=== PATIENT | male | born 1975 | race Caucasian/White ===

== ENCOUNTER 2020-06-26 21:13 | Emergency (ER) | payer OTHER, SELFPAY ==
[2020-06-26 21:28] VITALS: BP 165/99; PULSE 94; RESP 18; TEMP 36.9; O2SAT 97; BMI 27.8
--- NOTE | 2020-06-26 21:30 | ED_ITS ---
HPI - General Adult General Chief complaint: Wound/Laceration Stated complaint: LEFT HAND LACERATION OF THUMB Time Seen by Provider: 06/26/20 21:19 Source: patient Mode of arrival: Ambulatory Limitations: no limitations History of Present Illness HPI narrative: Patient is a 45-year-old male here for evaluation of a cut to his left thumb. He states that occurred when he was trying to open a package at home that had a zip tie. He states that he stabbed his thumb with the and some of that he was using. He states he is having some numbness on the outside of his thumb. He also states that he needs his tetanus updated. Related Data Allergies Allergy/AdvReac Type Severity Reaction Status Date / Time No Known Drug Allergies Allergy Verified 06/26/20 21:28 Review of Systems Musculoskeletal Comments: Left thumb pain Integumentary/Breasts Comments: Laceration to left thumb Neurologic Comments: Tingling to the left side of the thumb Hematologic/Lymphatic Hematologic/Lymphatic: Denies easy bleeding and Denies easy bruising On Anticoagulants: No Allergic/Immunologic Allergic/Immunologic: Denies urticaria Patient History Medical History Healthy adult Social History Smoking Status: Never smoker Exam Initial Vital Signs Initial Vital Signs: Vital Signs Temperature 98.4 F 06/26/20 21:28 Pulse Rate 94 H 06/26/20 21:28 Respiratory Rate 18 06/26/20 21:28 Blood Pressure 165/99 H 06/26/20 21:28 Pulse Oximetry 97 06/26/20 21:28 Const General: cooperative and comfortable Limitations: mental status not altered HENKS Head: normal to inspection and normocephalic Cardio Pulses: radial pulses present on the left Skin Other: Patient with 3 cm laceration to the volar aspect of the left thumb just proximal to the IP joint. Neuro Other: He reports some tingling to the radial aspect of the left thumb out the tip. Extrem Other: Can flex and extend at the IP joint and the MCP joint. Psych Appearance: well kempt Procedures Laceration Repair Laceration 1: Site: other (Left thumb) Side (If applicable): left Size (cm): 5 Description: linear Depth: simple, single layer Local Anesthetic: lidocaine 1% and with bicarb Amount of anesthesia used (mL): 3 Size (cm): 4-0 Number of sutures: 7 Technique: simple, interrupted Course Orders Ordered: Discontinued Medications Hydrocodone Bitart/Acetaminophen (Hydrocodone/Acet 5/325 Prepack) 1 bottle MISC SEEINSTR ONE Stop: 06/26/20 23:12 Last Admin: 06/26/20 23:14 Dose: 1 bottle Documented by: MARQUES Bacitracin (Bacitracin Oint 0.9 Gm Pckt) 1 applic TOP NOW ONE Stop: 06/26/20 22:58 Last Admin: 06/26/20 23:13 Dose: 1 applic Documented by: MARQUES Diphtheria/Tetanus/Acell Pertussis (Tet,Diph,Pertuss(Acell),Vac/Pf 0.5 Ml S yringe) 0.5 ml IM .ONCE ONE Stop: 06/26/20 21:31 Last Admin: 06/26/20 21:38 Dose: 0.5 ml Documented by: MARQUES Lidocaine/Sodium Bicarbonate (Lido 1%/Sod Bicarb 8.4% (10ml) 10 Ml Syringe) 10 ml INJ NOW ONE Stop: 06/26/20 21:31 Last Admin: 06/26/20 21:38 Dose: 10 ml Documented by: MARQUES Vital Signs Vital signs: Vital Signs - 8 hr 06/26/20 21:28 06/26/20 23:21 Temperature 98.4 F Pulse Rate 94 H 75 Respiratory Rate 18 20 Blood Pressure 165/99 H 156/85 H Pulse Oximetry 97 99 Medical Decision Making MDM Narrative Medical decision making narrative: The wound was clean. His tetanus was updated. He did have some bleeding that needed Gel-Foam in order to control. He did have some tingling along the radial aspect of the left thumb. The laceration was closed as described above. After the thumb was closed there was no more active bleeding. He was given care instructions and return precautions. He expressed understanding agreement. Discharge Plan Departure Patient Disposition: Home Clinical Impression: Laceration Instructions: DI for Laceration Repair Activity Restrictions/Additional Instructions: The stitches do need to be removed in 7-10 days. You can cover with a antibiotic ointment. You can take the splint off to shower and wash your hands. The splint is for soft tissue rest. You can stop wearing it in 3-4 days. Contact your primary provider for a follow-up. Return to the emergency department for any new or worsening symptoms
[2020-06-26] MEDS: LIDO 1%/SOD BICARB 8.4% (10ML) 10 ML SYRINGE INJ (21:38)
[2020-06-26] MEDS: TET,DIPH,PERTUSS(ACELL),VAC/PF 0.5 ML SYRINGE IM (21:38)
--- NOTE | 2020-06-26 21:51 | PC.NURSE ---
Pressure dressing applied 2144
[2020-06-26] MEDS: BACITRACIN OINT 0.9 GM PCKT 1 APPLIC TOP (23:13)
[2020-06-26] MEDS: HYDROCODONE/ACET 5/325 PREPACK 1 BOTTLE MISC (23:14)
[2020-06-26 23:21] VITALS: BP 156/85; PULSE 75; RESP 20; O2SAT 99
== END 2020-06-26 23:22 | disposition home or self-care (01) ==
PROVIDERS: Emergency Provider Emergency Medicine
DX: S61.012A Laceration without foreign body of left thumb without damage to nail, initial encounter (principal); W26.9XXA Contact with unspecified sharp object(s), initial encounter; Z23 Encounter for immunization
CPT/HCPCS: 12002; 29130; 90471; 99283; 99284; 90715

== ENCOUNTER → 2023-02-10 10:01 | Outpatient (CLI) | payer OTHER, SELFPAY ==
[2023-02-10 10:42] LABS: Add Manual Diff / Slide Review NO; Basophils Absolute Auto 0 /uL (0-100); Basophils Percent Auto 1.1 % (0-2); Eosinophils Absolute Auto 100 /uL (0-450); Eosinophils Percent Auto 3.4 % (2-4); Hematocrit 45.7 % (41-53); Hemoglobin 15.4 g/dL (13.5-17.5); Lymphocytes Absolute Auto 1200 /uL (1100-4500); Lymphocytes Percent Auto 28.3 % (25-40); Mean Corpuscular HGB Conc 33.7 % (30-36); Mean Corpuscular Hemoglobin 30.4 PG (26-34); Mean Corpuscular Volume 90.3 fL (80-100); Monocytes Absolute Auto 600 /uL (0-900); Monocytes Percent Auto 14.3 % (3-14); Neutrophils Absolute Auto 2300 /uL (1500-7000); Neutrophils Percent Auto 52.9 % (50-75); Platelet Count 196 X10^3/uL (150-400); Red Blood Cell Count 5.06 X10^6/uL (4.5-5.9); Red Cell Distribution Width 12.6 % (11.6-14.8); White Blood Cell Count 4.3 X10^3/uL (4.5-11.0)
[2023-02-10 11:03] LABS: HEMOLYSIS < 15 (0-50)
[2023-02-10 11:08] LABS: Alanine Aminotransferase 54 IU/L (<50); Albumin 4.4 g/dL (3.5-5.0); Albumin Globulin Ratio 1.4 (1.0-2.8); Alkaline Phosphatase 44 U/L (38-126); Aspartate Aminotransferase 50 IU/L (17-59); BUN Creatinine Ratio 14.1 (6-22); Bilirubin Total 0.9 mg/dL (0.2-1.3); Blood Urea Nitrogen 13 mg/dL (9-20); Calcium 9.7 mg/dL (8.4-10.2); Carbon Dioxide 28 mmol/L (22-32); Chloride 101 mmol/L (98-107); Cholesterol 243 mg/dL (140-199); Estimated Glomerular Filt Rate > 60 mL/min (>60); Globulin 3.2 g/dL (1.7-4.1); Glucose 98 mg/dL (70-100); HDL Cholesterol 50 mg/dL (40-60); LDL Cholesterol Calculated 171 mg/dL (<100); Potassium 4.5 mmol/L (3.4-5.1); Sodium 137 mmol/L (137-145); Total Protein 7.6 g/dL (6.3-8.2); Triglycerides 108 mg/dL (35-150)
[2023-02-10 12:09] LABS: Prostate Specific Antigen 0.592 ng/mL (0.10-4.00)
== END ==
PROVIDERS: PCP Family Medicine; Referring Provider Family Medicine; Visit Provider Family Medicine
DX: Z00.00 Encounter for general adult medical examination without abnormal findings (principal); L57.0 Actinic keratosis; D23.20 Other benign neoplasm of skin of unspecified ear and external auricular canal; I10 Essential (primary) hypertension
CPT/HCPCS: 36415; 80053; 80061; 84153; 85025